=== PATIENT | female | born 2000 ===

== ENCOUNTER 2024-05-09 23:37 | Emergency (ER) | payer SELFPAY ==
[~2024-05-09] VITALS: Ht 149.9 cm; Wt 52.3 kg
[2024-05-09 23:52] VITALS: BP 113/74; TEMP 98.5
[2024-05-10] MEDS ORDERED: NS 1,000 ML IV ONE (00:15)
[2024-05-10] MEDS ORDERED: Ondansetron 4 MG/2 ML VIAL IV ONE (00:15)
[2024-05-10] MEDS ORDERED: ZOFRAN ODT4 MG PO (01:08)
[2024-05-10 01:12] VITALS: PULSE 73
== END 2024-05-10 01:12 | disposition home or self-care (01) ==
LOC: COL.ER 23:37
DX: O21.9 Vomiting of pregnancy, unspecified (principal); Z3A.08 8 weeks gestation of pregnancy
CPT/HCPCS: J2405; J7030